=== PATIENT | female | born 1945 | race African-American/Black ===

== ENCOUNTER 2018-01-06 14:43 | Outpatient (CLI) | payer MEDICARE, OTHER ==
[~2018-01-06] VITALS: Ht 177.8 cm; Wt 90.7 kg
[2018-01-06] MEDS ORDERED: UNOBMED (15:28)
[2018-01-06 15:32] VITALS: BP 128/80
--- NOTE | 2018-01-06 15:34 | GI Initial Consult Note ---
History of Present Illness General Date patient seen: Jan 06, 2018 Time patient seen: 15:19 Referring physician: CONSTANZA Reason for Consultation: HEPATITIS C Present Illness HPI Pt is a 71 year old female, tx for ASIA with dx of worsening thrombocytopenia. Pt with medical history of chronic thrombocytopenia, hepatitis C from blood transfusion, chronic kidney disease and hepatic encephalopathy. ROS limited, patient has advanced dementia. Brought in by family members for evaluation and treatment of Hep C. Possible rectal bleed per report. Unknown history of endoscopy / colonoscopy. Pt refused a liver transplant 10 years ago in [place]. Denies any unintentional weight loss or changes in dietary habits. Patient is wheelchair bound and is a fall risk. Home Meds Reported Medications Unable to Obtain Medications (UNABLE TO OBTAIN MEDS) 1 Ea Ea 01/06/18 Med list reviewed/reconciled: Yes Allergies: Coded Allergies: No Known Allergies (Unverified , 01/06/18) Patient History Limited by: medical condition History Provided By: Family Member, Medical Record PMH Narrative Anxiety Hep C 2/2 to blood transfusion cirrhosis CKD dementia schizophrenia Past Surgical History: Hysterectomy ovary removal Family History Narrative unable to obtain at this time Social History: Denies: smoking, alcohol use, drug use, other Review of Systems All Other Systems: limited Physical Exam T 98.6 BP 128/80 P 76 98 RA Sp02 EP Interpretation: reviewed, normal General Appearance: well appearing, no apparent distress, alert Head: normocephalic EENT: PERRL/EOMI, normal ENT inspection Neck: supple Respiratory: normal breath sounds, no respiratory distress Cardiovascular: normal rate Gastrointestinal: normal inspection, non tender, soft, normal bowel sounds, non -distended Rectal: deferred Genitourinary: no CVA tenderness Musculoskeletal: normal inspection, back normal Neurologic: alert, responsive Psychiatric: other - advanced dementia Skin: normal inspection, normal color, no rash, warm/dry, palpation normal, well hydrated Lymphatic: normal inspection, no adenopathy GI: Plan Problems: (1) Anxiety (2) Hepatitis C (3) Cirrhosis (4) CKD (chronic kidney disease) (5) Dementia (6) Schizophrenia Plan Hep C treatment work up HCV Quant HCV genotype CBC, CMP, PT/ PTT, TSH AFP Hep BsAg and Ab Hep A total abdominal U/S to evaluate for cirrhosis or liver lesions >> scheduled for 10am at [facility] - NPO @ PR day prior imaging study RTC 01/24/18 after lab studies/imaging studies. Seen with Dr. Ohara. Thank you for this patient referral. Seda Anderson N.P. Jan 06, 2018 15:34
[2018-01-06] MEDS ORDERED: DONEPEZIL HCL5 M2 ORAL (16:12)
[2018-01-06] MEDS ORDERED: XIFAXAN550 MG ORAL (16:12)
[2018-01-06] MEDS ORDERED: MULTIVITAMINS1 EAC2 ORAL (16:12)
[2018-01-06] MEDS ORDERED: SPIRONOLACTONE50 MG ORAL (16:12)
[2018-01-06] MEDS ORDERED: CALCITRATE + V1 EACH PO (16:12)
[2018-01-06] MEDS ORDERED: FLORANEX TABLE1 EAC1 PO (16:12)
[2018-01-06] MEDS ORDERED: PEPCID20 MG ORAL (16:12)
[2018-01-06] MEDS ORDERED: LACTULOSE20 GM/301 ORAL (16:12)
[2018-01-06] MEDS ORDERED: LASIX20 M1 ORAL (16:12)
[2018-01-06] MEDS ORDERED: VITAMIN B-1100 MG ORAL (16:12)
[2018-01-06] MEDS ORDERED: VITAMIN C500 M1 ORAL (16:12)
== END 2018-01-06 15:15 | disposition home or self-care (01) ==
LOC: PAN 14:43
DX: B19.20 Unspecified viral hepatitis C without hepatic coma (principal); F41.9 Anxiety disorder, unspecified; K74.60 Unspecified cirrhosis of liver; N18.9 Chronic kidney disease, unspecified; F03.90 Unspecified dementia, unspecified severity, without behavioral disturbance, psychotic disturbance, mood disturbance, and anxiety; F20.9 Schizophrenia, unspecified; Z99.3 Dependence on wheelchair; Z91.81 History of falling; Z90.710 Acquired absence of both cervix and uterus; Z90.721 Acquired absence of ovaries, unilateral
CPT/HCPCS: 99201

== ENCOUNTER 2018-01-14 09:27 | Outpatient (CLI) | payer MEDICARE, MEDICAID ==
[~2018-01-14 09:27] MED LIST: CALCITRATE + V1 EACH PO; DONEPEZIL HCL5 M2 ORAL; FLORANEX TABLE1 EAC1 PO; LACTULOSE20 GM/301 ORAL; LASIX20 M1 ORAL; MULTIVITAMINS1 EAC2 ORAL; PEPCID20 MG ORAL; SPIRONOLACTONE50 MG ORAL; UNOBMED; VITAMIN B-1100 MG ORAL; VITAMIN C500 M1 ORAL; XIFAXAN550 MG ORAL
--- NOTE | 2018-01-14 14:08 | Diagnostic Imaging Report ---
Indication: Abdominal distention, history of hepatitis C and cirrhosis Technique: Suarez-scale and duplex images of the upper abdomen were obtained Comparison: none Findings: There is extensive dense shadowing in the gallbladder fossa, with only minimal visualization of the gallbladder wall, which is not grossly thickened. Sonographic Zapien's sign is negative. Common bile duct measures for mm in diameter. No intrahepatic biliary ductal dilatation. Liver demonstrates coarsened echogenicity with surface nodularity. No focal parenchymal abnormality. Portal vein and hepatic veins are patent.. However, prominent dilated veins are seen in the bernardo hepatis and surrounding the pancreas. Pancreas is unremarkable. Spleen is enlarged, measuring 16.6 cm. There are splenic hilar varices as well as perinephric varices Left kidney measures 11 cm in length. Right kidney measures 9.6 cm length. Both kidneys demonstrate normal echogenicity. There is no hydronephrosis. There are bilateral renal cysts. The left kidney demonstrates a 1 cm diameter hyperechoic lesion in the interpolar region. Abdominal aorta is partially obscured by bowel gas, visualized portions are non-aneurysmal. . Impression: Extensive dense shadowing in the gallbladder fossa. This most likely represents a gallbladder packed with stones. However, porcelain gallbladder can also give this appearance. Also, in patients who have undergone cholecystectomy, the duodenum can occupy the gallbladder fossa and give this appearance. Correlate with surgical history. Negative for dilated ducts Evidence of hepatic cirrhosis, with coarsened hepatic echogenicity and nodular liver surface Evidence of portal hypertension, with extensive portosystemic varices as well as splenomegaly 1 cm hyperechoic left renal lesion. 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 A CT for if more definitive Incidental finding bilateral renal cysts Note inability to visualized portions of the abdominal aorta characterization
== END 2018-01-14 11:27 | disposition home or self-care (01) ==
LOC: ULS 09:27
DX: K74.60 Unspecified cirrhosis of liver (principal); B19.20 Unspecified viral hepatitis C without hepatic coma; K76.6 Portal hypertension; N28.9 Disorder of kidney and ureter, unspecified; N20.0 Calculus of kidney
CPT/HCPCS: 76700

== ENCOUNTER → 2018-01-24 | Outpatient (CLI) | payer MEDICARE, MEDICAID ==
--- NOTE | 2018-01-24 14:01 | GI Progress Note ---
Assessment/Plan Problems: (1) Hepatitis C ICD Codes: B19.20 - Unspecified viral hepatitis C without hepatic coma SNOMED: 93013884 (2) Dementia ICD Codes: F03.90 - Unspecified dementia without behavioral disturbance SNOMED: 80683629 (3) Cirrhosis ICD Codes: K74.60 - Unspecified cirrhosis of liver SNOMED: 36997707 (4) Anxiety ICD Codes: F41.9 - Anxiety disorder, unspecified SNOMED: 94453148 Status: stable Status Narrative Seen with Dr. Ohara. Assessment/Plan Abdominal U/S reviewed with patient: - Extensive dense shadowing in the gallbladder fossa. This most likely represents a gallbladder packed with stones. However, porcelain gallbladder can also give this appearance. Also, in patients who have undergone cholecystectomy , the duodenum can occupy the gallbladder fossa and give this appearance. Correlate with surgical history. - Negative for dilated ducts - Evidence of hepatic cirrhosis, with coarsened hepatic echogenicity and nodular liver surface - Evidence of portal hypertension, with extensive portosystemic varices as well as splenomegaly - 1 cm hyperechoic left renal lesion. 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 A CT for if more definitive - Incidental finding bilateral renal cysts. Labs reviewed with patient and d/w with family members. elevated ammonia levels AFP negative EGD colonoscopy to be scheduled, will contact SNF for scheduling - CLD & (Nulytely/Suprep/Movi-Prep) prep instructions given and acknowledged by patient. - NPO @ NM day prior procedure explained. Rx Xifaxan 550mg PO BID HCV genotype and quant to be drawn day of procedure if not already done. The patient was seen and examined at bedside and all new and available data was reviewed in the patients chart. I agree with the above findings, impression and plan. (Patient seen earlier today. Signature stamp does not reflect patient encounter time.). - Tj Ohara MD Subjective Subjective denies any symptoms at this time wheel chair Objective T 97.8 BP 100/55 P 70 99 RA General Appearance: WD/WN, no apparent distress, alert Cardiovascular: normal rate Respiratory/Chest: normal breath sounds, no respiratory distress Abdominal Exam: normal bowel sounds, non tender, soft Extremities: non-tender, other - reduced ROM Seda Anderson N.PBrigid Jan 24, 2018 14:01 JANICE OHARA Jan 25, 2018 12:25
== END | disposition home or self-care (01) ==
LOC: PAN 12:55
DX: B19.20 Unspecified viral hepatitis C without hepatic coma (principal); F03.90 Unspecified dementia, unspecified severity, without behavioral disturbance, psychotic disturbance, mood disturbance, and anxiety; K74.60 Unspecified cirrhosis of liver; F41.9 Anxiety disorder, unspecified; K76.6 Portal hypertension; N20.0 Calculus of kidney

== ENCOUNTER 2018-02-04 09:45 | Day surgery (SDC) | payer MEDICARE, MEDICAID ==
[~2018-02-04] VITALS: Ht 177.8 cm; Wt 90.7 kg
[2018-02-04] VITALS (8 sets, daily range): BP systolic 120–136; BP diastolic 48–83
[2018-02-04] MEDS ORDERED: TRAMADOL HCL50 MG ORAL (12:04)
[2018-02-04] MEDS ORDERED: LR 1000ml ONE (12:30)
[2018-02-04] MEDS ORDERED: Midazolam 2mg/2ml Inj ONE (12:30)
[2018-02-04] MEDS ORDERED: Propofol 200mg/20ml IV ONE (12:30)
[2018-02-04] MEDS ORDERED: fentaNYL 100 mcg/2 mL IV ONE (12:30)
--- NOTE | 2018-02-04 12:48 | Pre-Procedure Note/Attestation ---
Pre-Procedure Note/Attestation Complete Prior to Procedure Planned Procedure: not applicable Procedure Narrative: esophagogastroduodenoscopy and colonoscopy Indications for Procedure Pre-Operative Diagnosis: screening colon, GERD,cirrhosis Attestation I attest that I discussed the nature of the procedure; its benefits; risks and complications; and alternatives (and the risks and benefits of such alternatives ), prior to the procedure, with the patient (or the patient's legal sales training representative). I attest that, if there was a reasonable possibility of needing a blood transfusion, the patient (or the patient's legal sales training representative) was given the [facility] standardized written summary, pursuant to the [place] Blood Safety Act ([place] Health and Safety Code # 1645, as amended). I attest that I re-evaluated the patient just prior to the surgery and that there has been no change in the patient's H&P, except as documented below: JANICE POPE Feb 04, 2018 12:48
--- NOTE | 2018-02-04 12:48 | Short Stay Surgery H&P ---
History of Present Illness History of Present Illness Chief Complaint see recent consult note HPI Brigitte Rogers is a 72 year old female who was admitted on for Cirrhosis Patient History Allergies: Coded Allergies: No Known Allergies (Unverified , 01/06/18) Medication History Scheduled Acidophilus/Bulgaricus (Floranex Tablet), 1 EACH PO TID, (Reported) Ascorbic Acid* (Vitamin C*), 500 MG ORAL DAILY, (Reported) Calcium Citrate/Vitamin D3 (Calcitrate + Vit D Caplet), 1 EACH PO DAILY, ( Reported) Donepezil Hcl* (Donepezil Hcl*), 5 MG ORAL DAILY, (Reported) Famotidine (Pepcid), 20 MG ORAL BEDTIME, (Reported) Furosemide* (Lasix*), 20 MG ORAL DAILY, (Reported) Lactulose (Lactulose*), 30 ML ORAL PRN, (Reported) Multivitamins* (Multivitamins*), 1 TAB ORAL DAILY, (Reported) Rifaximin* (Xifaxan*), 550 MG ORAL TWICE A DAY, (Reported) Spironolactone* (Aldactone*), 100 MG ORAL DAILY, (Reported) Thiamine Hcl* (Vitamin B-1*), 100 MG ORAL DAILY, (Reported) Scheduled PRN Tramadol Hcl* (Ultram*), 50 MG ORAL Q6H PRN for For Pain, (Reported) Physical Exam Vital Signs Last Vital Signs Date Time Temp Pulse Resp B/P (MAP) Pulse Ox O2 Delivery O2 Flow Rate FiO2 02/04/18 11:19 97.9 66 18 120/73 99 Room Air 97.9 Plan Attestation Are the patient's medical conditions optimized for surgery? JANICE POPE Feb 04, 2018 12:48
[2018-02-04] MEDS ORDERED: LR 1000ml 1,000 ML IVLG SCH (12:54)
--- NOTE | 2018-02-04 12:59 | 48 Hour Post Anesthesia Eval ---
Post Anesthesia Evaluation Procedure: EGD COLO Date of Evaluation: Feb 06, 2018 Time of Evaluation: 12:58 Blood Pressure Systolic: 141 0: 65 Pulse Rate: 80 Respiratory Rate: 19 Temperature (Fahrenheit): 97 O2 Sat by Pulse Oximetry: 99 Airway: patent Nausea: No Vomiting: No Hydration Status: adequate Mental Status/LOC: patient returned to baseline Post-Anesthesia Complications: none Follow-up care needed: ready to discharge Sulaiman Rahman M.D. Feb 04, 2018 12:59
[2018-02-04] MEDS ORDERED: fentaNYL 100 mcg/2 mL IV PRN (13:00)
[2018-02-04] MEDS ORDERED: Hydromorphone 0.5mg/0.5ml inj IVP PRN (13:00)
--- NOTE | 2018-02-04 13:11 | Endoscopy Procedure Note ---
Endoscopy Procedure Note General Indication for Procedure: SCREENING COLON, gerd Procedures Performed: EGD, colonoscopy Operative Findings/Diagnosis: GASTRITIS, HEMORRHOIDS Specimen: yes Pt Tolerated Procedure Well: Yes Estimated Blood Loss: none Anesthesia Anesthesiologist: GAGANDEEP Anesthesia: MAC Inserted Devices Implant(s) used?: No Quality Quality of Bowel Preparation: Poor Did scope reach the cecum?: Yes Was there any complications?: No GI Core Measures 50 yrs or older w/o bx or poly: No 10yrs. F/U not recommended: Yes If not recommended, why?: Above average risk 10 yrs. F/U needed: Yes 18 years or older w/prev. colo: No JANICE POPE Feb 04, 2018 13:11
--- NOTE | 2018-02-04 17:00 | Procedure Note ---
DATE OF PROCEDURE: 02/04/2018 PROCEDURE: Upper endoscopy with biopsy and colonoscopy. SURGEON: uJan F Ohara M.D. ANESTHESIOLOGIST: Sulaiman Rahman M.D. INSTRUMENT: Olympus adult flexible endoscope and colonoscope. INDICATIONS: Screening colonoscopy evaluation, history of cirrhosis, evaluation for esophageal varices. The procedure, risks, benefits, and possible consequences, including hemorrhage, aspiration, perforation and infection, and alternative treatments, were explained to the patient/legal guardian by Dr. Juan F Ohara and the patient/legal guardian understood and accepted these risks. DESCRIPTION OF PROCEDURE: After informed consent was obtained and the patient was adequately sedated, Olympus upper endoscope was advanced from mouth into the second portion of duodenum and retroflexion was performed in the stomach. The patient has diffuse gastritis. Random biopsy from antrum was obtained to rule out H. pylori infection. There was no evidence of any obvious esophageal . No gastric varices at this time. At this time, the upper endoscope was retrieved the patient was turned over for colonoscopy. First, a rectal exam was performed, which was positive for internal hemorrhoids. Then, the scope was advanced from the rectum into the cecum, documented by appendiceal orifice, ileocecal valve, and right upper quadrant palpation. Unfortunately, the quality of prep was poor, especially the cecum and ascending colon were covered with a semisolid greenish stools, so we cannot evaluate those areas carefully. Also throughout the colon, we had to see a lot of semi-solid stools. So I would say maybe 30% of the colonic mucosa was not seen during this examination. There was no obvious bleeding. No diverticulosis. No polyp was seen. Retroflexion in the rectum showed evidence of medium-sized internal hemorrhoids. SUMMARY OF FINDINGS: 1. Gastritis. 2. Full colonic prep. 3. Hemorrhoids. RECOMMENDATIONS: Follow up biopsy results and treat accordingly. We will consider doing colonoscopy sooner than 5 years given the prep was poor. Juan F Ohara M.D. DR: MARTHA JOB#: [id number] CC:
== END 2018-02-04 14:55 | disposition home or self-care (01) ==
LOC: GAS 09:45
DX: Z12.11 Encounter for screening for malignant neoplasm of colon (principal); K29.70 Gastritis, unspecified, without bleeding; K64.8 Other hemorrhoids; K74.60 Unspecified cirrhosis of liver; K21.9 Gastro-esophageal reflux disease without esophagitis
CPT/HCPCS: 43239; 87522; 87902; G0121; 93005; 94003; 94150; J2250

== ENCOUNTER 2018-07-04 13:02 | Outpatient (CLI) | payer MEDICARE, MEDICAID ==
[~2018-07-04 13:02] MED LIST changes: +TRAMADOL HCL50 MG ORAL
--- NOTE | 2018-07-04 13:45 | GI Progress Note ---
Assessment/Plan Problems: (1) Hepatitis C ICD Codes: B19.20 - Unspecified viral hepatitis C without hepatic coma SNOMED: 64019262 Status: stable Status Narrative Seen with Dr. Ohara. Assessment/Plan Hep C treatment in progress >> started [place] 05/30/18. RTC x 3 months The patient was seen and examined at bedside and all new and available data was reviewed in the patients chart. I agree with the above findings, impression and plan. (Patient seen earlier today. Signature stamp does not reflect patient encounter time.). - Juan F Ohara MD Subjective Gastrointestinal/Abdominal: Reports: no symptoms Objective T 97.8 BP 101/54 P 66 97 RA General Appearance: WD/WN, no apparent distress, alert Cardiovascular: normal rate Respiratory/Chest: normal breath sounds, no respiratory distress Abdominal Exam: normal bowel sounds, non tender, soft Extremities: normal range of motion, non-tender Cresencio Anderson NP Jul 04, 2018 13:45
[2018-07-04] MEDS ORDERED: HARVONI 90-4001 EACH PO (14:35)
[2018-07-04 14:36] VITALS: BP 101/54
== END 2018-07-04 13:32 | disposition home or self-care (01) ==
LOC: PAN 13:02
DX: B19.20 Unspecified viral hepatitis C without hepatic coma (principal)
CPT/HCPCS: 99212

== ENCOUNTER 2018-07-28 11:02 | Outpatient (CLI) | payer MEDICARE, MEDICAID ==
[~2018-07-28 11:02] MED LIST changes: +HARVONI 90-4001 EACH PO
--- NOTE | 2018-07-28 15:17 | Diagnostic Imaging Report ---
Indication: Abdominal pain. Hepatitis C. Technique: Grayscale and duplex Doppler imaging of the abdomen performed. Comparison: 01/14/2018 Findings: Nodularity of the liver again demonstrated with coarsened echotexture of the liver. The liver is not enlarged. Signs of portal hypertension including splenomegaly measuring 16 cm noted. Portosystemic varices are also present and quite extensive within the upper abdomen. There is no ascites. Nonshadowing echogenic lesion in the left kidney demonstrated measuring 1 cm consistent with an angiomyolipoma. Bilateral renal cysts also noted. There is no hydronephrosis. The CBD is between 4 and 5 mm in diameter. Calcification of aorta demonstrated. There is dense shadowing in the area of the gallbladder fossa. Gallstones are suspected. This is not definite as the shadowing could be due to calcification of the wall the gallbladder such as a porcelain gallbladder or could represent air within the duodenum in the setting of prior cholecystectomy. Similar findings noted on the prior study. The pancreas is poorly seen on this examination. IMPRESSION: No significant change compared to the examination from 01/14/2018. Chronic liver disease/cirrhosis with surface nodularity. Stigmata of portal hypertension including portosystemic varices and splenomegaly. Gallstones versus porcelain gallbladder versus duodenum air within the gallbladder fossa in the context of prior cholecystectomy. Correlate clinically. CT may be of benefit for evaluation if needed. Renal angiomyolipoma left kidney unchanged. Bilateral renal cysts.
== END 2018-07-28 13:02 | disposition home or self-care (01) ==
LOC: ULS 11:02
DX: B19.20 Unspecified viral hepatitis C without hepatic coma (principal); K74.60 Unspecified cirrhosis of liver; K76.6 Portal hypertension; R16.1 Splenomegaly, not elsewhere classified; D17.71 Benign lipomatous neoplasm of kidney; N28.1 Cyst of kidney, acquired
CPT/HCPCS: 76700

== ENCOUNTER 2018-11-15 10:03 | Outpatient (CLI) | payer MEDICARE, MEDICAID ==
--- NOTE | 2018-11-15 11:21 | GI Progress Note ---
Assessment/Plan Problems: (1) Hepatitis C ICD Codes: B19.20 - Unspecified viral hepatitis C without hepatic coma SNOMED: 37056047 (2) Cirrhosis ICD Codes: K74.60 - Unspecified cirrhosis of liver SNOMED: 21146325 (3) Anxiety ICD Codes: F41.9 - Anxiety disorder, unspecified SNOMED: 78281915 Status: unchanged Status Narrative Seen with Dr. Ohara. Assessment/Plan [facility] for Vosevi 400-100-100 mg tab given for 12 weeks RTC x 3 months The patient was seen and examined at bedside and all new and available data was reviewed in the patients chart. I agree with the above findings, impression and plan. (Patient seen earlier today. Signature stamp does not reflect patient encounter time.). - Juan F Ohara MD Subjective Subjective Has occasional right lower quadrant abdominal pain Hepatitis C status post Harvoni with cirrhosis Objective blood pressure 112/61 Pulse 65 97% room air General Appearance: WD/WN, no apparent distress, alert Cardiovascular: normal rate Respiratory/Chest: normal breath sounds, no respiratory distress Abdominal Exam: normal bowel sounds, non tender, soft Extremities: normal range of motion, non-tender Cresencio Anderson NP Nov 15, 2018 11:21
[2018-11-15] MEDS ORDERED: PROTONIX40 MG ORAL (14:05)
[2018-11-15] MEDS ORDERED: POTASSIUM CHLO20 ME1 ORAL (14:05)
[2018-11-15 14:06] VITALS: BP 112/61
== END 2018-11-15 10:33 | disposition home or self-care (01) ==
LOC: PAN 10:03
DX: B19.20 Unspecified viral hepatitis C without hepatic coma (principal); K74.60 Unspecified cirrhosis of liver; F41.9 Anxiety disorder, unspecified
CPT/HCPCS: 99213

== ENCOUNTER 2019-04-05 13:30 | Outpatient (CLI) | payer MEDICARE, MEDICAID ==
[~2019-04-05 13:30] MED LIST changes: +POTASSIUM CHLO20 ME1 ORAL; +PROTONIX40 MG ORAL
--- NOTE | 2019-04-05 14:51 | General Progress Note ---
Assessment/Plan Problem List: (1) Hepatitis C ICD Codes: B19.20 - Unspecified viral hepatitis C without hepatic coma SNOMED: 61219962 (2) Cirrhosis ICD Codes: K74.60 - Unspecified cirrhosis of liver SNOMED: 62734066 (3) Anxiety ICD Codes: F41.9 - Anxiety disorder, unspecified SNOMED: 48091299 (4) Dementia ICD Codes: F03.90 - Unspecified dementia without behavioral disturbance SNOMED: 84150232 (5) CKD (chronic kidney disease) ICD Codes: N18.9 - Chronic kidney disease, unspecified SNOMED: 481219718 (6) Schizophrenia ICD Codes: F20.9 - Schizophrenia, unspecified SNOMED: 18278905 Assessment/Plan: hep c quant repeat us in Dec Subjective ROS Limited/Unobtainable: Yes Allergies: Coded Allergies: No Known Allergies (Unverified , 01/06/18) Objective General Appearance: alert EENT: normal ENT inspection Neck: supple Cardiovascular: normal rate Respiratory/Chest: decreased breath sounds Abdomen: normal bowel sounds, non tender, soft Extremities: non-tender Juan F Ohara MD Apr 05, 2019 14:51
[2019-04-05 15:35] VITALS: BP 99/52
[2019-04-06] MEDS ORDERED: ZOFRAN4 M3 ORAL (12:50)
[2019-04-06] MEDS ORDERED: ACETAMINOPHEN500 M3 ORAL (12:50)
[2019-04-06] MEDS ORDERED: XIFAXAN550 MG ORAL (12:50)
[2019-04-06] MEDS ORDERED: ACETAMINOPHEN325 M1 ORAL (12:50)
[2019-04-06] MEDS ORDERED: FLEET ENEMA133 ML RECTAL (12:50)
[2019-04-06] MEDS ORDERED: DOCUSATE SODIU100 MG ORAL (12:50)
[2019-04-06] MEDS ORDERED: DULCOLAX10 MG RC (12:50)
== END 2019-04-05 15:30 | disposition home or self-care (01) ==
LOC: PAN 13:30
DX: B19.20 Unspecified viral hepatitis C without hepatic coma (principal); K74.60 Unspecified cirrhosis of liver; F41.9 Anxiety disorder, unspecified; F03.90 Unspecified dementia, unspecified severity, without behavioral disturbance, psychotic disturbance, mood disturbance, and anxiety; N18.9 Chronic kidney disease, unspecified; F20.9 Schizophrenia, unspecified
CPT/HCPCS: 99212